=== PATIENT | female | born 1950 | race Caucasian/White ===

== ENCOUNTER → 2022-09-19 13:36 | Outpatient (CLI) | payer MEDICARE, OTHER, SELFPAY ==
--- NOTE | 2022-09-19 | DI.MRI.S_ITS ---
PROCEDURE: MR HEAD/BRAIN WO CON INDICATIONS: Other headache syndrome TECHNIQUE: Non-contrast axial T1 spin echo, axial T2 fast spin echo, sagittal and axial FLAIR, coronal T2 fast spin echo, axial gradient echo, axial diffusion and ADC through the brain. COMPARISON: None. FINDINGS: Image quality: Excellent. CSF spaces: Ventricles appear symmetric in size and shape. Basal cisterns are patent. No extra-axial fluid collections. Brain: No intracranial bleeds or mass effects. There is cerebral volume loss for age. There are periventricular and deep white matter chronic small vessel ischemic changes. Brainstem appears normal. Diffusion-weighted images show no acute ischemic insults. Small chronic bilateral basal ganglia infarcts. Normal intravascular flow voids are present. Skull and face: Calvarial bone marrow is normal in signal. Orbits are normal. Sinuses: Sinuses and mastoids are clear. IMPRESSION: 1. Mild volume loss and small vessel ischemic disease. 2. No acute process. No recent infarct. 3. Small chronic bilateral basal ganglia infarcts. Dictated by: Steven Ghotra M.D. on 09/22/2022 at 9:01 Approved by: Steven Ghotra M.D. on 09/22/2022 at 9:02
== END ==
PROVIDERS: Referring Provider Internal Medicine; Visit Provider Internal Medicine
DX: G44.89 Other headache syndrome (principal); G60.3 Idiopathic progressive neuropathy; I63.89 Other cerebral infarction; I67.89 Other cerebrovascular disease
CPT/HCPCS: 70551